=== PATIENT | male | born 2000 | race Caucasian/White ===

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

== ENCOUNTER 2022-04-27 17:19 | Emergency (ER) | payer MEDICAID ==
[~2022-04-27] VITALS: Ht 188 cm; Wt 82.0 kg
[2022-04-27 17:23] VITALS: BP 117/78
[2022-04-27] MEDS ORDERED: iohexol 350MG/ML 100ml bottle IV ONE (18:12)
[2022-04-27 21:02] LABS: BASOPHILS % (AUTO) 0.2 % (0-1); EOSINOPHILS % (AUTO) 0 % (0-6); HEMATOCRIT 34.9 % (42.0-52.0); HEMOGLOBIN 12.2 g/dl (14.0-17.9); LYMPHOCYTES % (AUTO) 22.7 % (21-51); MEAN CORPUSCULAR HEMOGLOBIN 29.4 PG (27.0-31.0); MEAN PLATELET VOLUME 6.9 FL (7.4-10.4); MONOCYTES # (AUTO) 0.7 X10'3 (0-0.9); NEUTROPHILS # (AUTO) 2.6 X10'3 (1.8-7.7); NEUTROPHILS % (AUTO) 61.1 % (42-75); PLATELET COUNT 148 X10'3 (140-440); RED BLOOD COUNT 4.16 X10'6 (4.70-6.10); WHITE BLOOD COUNT 4.3 X10'3 (4.5-11.0)
[2022-04-27] MEDS ORDERED: IBUP-1986 PO (21:03)
[2022-04-27] MEDS ORDERED: AMOX-117 PO ×2 (21:03)
[2022-04-27] MEDS ORDERED: clindamycin 600mg/D5W 50ml 50 ML IV ONE (21:05)
[2022-04-27] MEDS ORDERED: ketorolac trometh. 30mg/ml inj. IV ONE (21:05)
[2022-04-27 21:19] LABS: ALANINE AMINOTRANSFERASE 60 U/L (12-78); ALBUMIN 3.3 G/DL (3.4-5.0); ALBUMIN/GLOBULIN RATIO 0.8 (1.1-1.5); ALKALINE PHOSPHATASE 68 IU/L (46-116); ANION GAP 11 (8-16); ASPARTATE AMINO TRANSFERASE 68 U/L (10-37); BILIRUBIN,TOTAL 0.3 MG/DL (0.1-1.0); BLOOD UREA NITROGEN 11 MG/DL (7-18); BUN/CREATININE RATIO 11.8 (5.4-32.0); CALCIUM 8.4 MG/DL (8.5-10.1); CHLORIDE 95 MMOL/L (99-107); CREATININE 0.93 MG/DL (0.60-1.10); GLUCOSE 105 MG/DL (70-104); MAGNESIUM 1.5 MG/DL (1.5-2.4); POTASSIUM 3.2 MMOL/L (3.5-5.1); SODIUM 133 MMOL/L (135-145); TOTAL CARBON DIOXIDE 26.6 MMOL/L (24-32); TOTAL PROTEIN 7.7 G/DL (6.4-8.2); eGFR > 90 ML/MIN
[2022-04-27] MEDS ORDERED: CLIN300C54 PO (21:23)
== END 2022-04-27 23:53 | disposition left against medical advice (07) ==
LOC: ER 17:19
DX: S02.5XXA Fracture of tooth (traumatic), initial encounter for closed fracture (principal); R22.9 Localized swelling, mass and lump, unspecified; X58.XXXA Exposure to other specified factors, initial encounter; Y93.89 Activity, other specified; Y92.89 Other specified places as the place of occurrence of the external cause; Y99.8 Other external cause status
CPT/HCPCS: 70491; 71045; 80053; 83735; 85025; 93005; 96365; 96375; 99285; J1885; J3490; Q9967